=== PATIENT | male | born 1940 | race Caucasian/White ===

== ENCOUNTER 2020-12-22 14:19 | Inpatient (IN) | payer MEDICARE, BC ==
[~2020-12-22] VITALS: Ht 190.5 cm; Wt 109.3 kg
[~2020-12-22 14:19] MED LIST: DRON400T MT; FURO-152 MT; KDUR10 PO; LOSA25TA26 PO; TAMS-11 PO
[2020-12-22 15:45] LABS: CHLORIDE 106 mEq/L (98-107)
[2020-12-22] MEDS ORDERED: SODIUM CHLORIDE 0.9% 250 ML IV ONE (15:45)
[2020-12-22] MEDS ORDERED: NOREPINEPHRINE 8MG/250ML PMX 250 ML IV PRN (15:45)
[2020-12-22 15:50] LABS: BASOPHILS % 0.5 % (0.0-2.0); HEMATOCRIT. 29.3 % (42.0-52.0); MEAN CORPUSCULAR HEMOGLOBIN 28.9 pg (28.0-32.0); MEAN PLATELET VOLUME 8.1 fl (7.4-10.4); MONOCYTES % 6.7 % (2.0-8.0); NEUTROPHILS % 64.8 % (40.0-76.0); PLATELET 146 x1000/uL (130-400); RED BLOOD CELL COUNT 3.44 mill/uL (4.7-6.1); RED CELL DISTRIBUTION WIDTH 15.9 % (11.6-14.6)
[2020-12-22 15:58] LABS: BETA HYDROXYBUTYRATE 0.4 mMol/L (0.0-0.3)
[2020-12-22] MEDS: AMIODARONE HCL 200 MG TABLET PO SCH ×2 (16:00→22:57)
[2020-12-22] MEDS ORDERED: AMIODARONE HCL 900 MG in DEXT 5% WATER 482 ML IV SCH (16:00)
[2020-12-22] MEDS ORDERED: CLONIDINE 0.1MG TABLET PO PRN (20:45)
[2020-12-22] MEDS ORDERED: IPRATROPIUM/ALBUTEROL 0.5-3(2.5)MG/3ML NEB NEB PRN (20:45)
[2020-12-22] MEDS ORDERED: MAGNESIUM/ALUMINUM HYDROXIDE/SIMETHICONE 30ML UDC PO PRN (20:45)
[2020-12-22] MEDS ORDERED: ONDANSETRON HCL 4MG/2ML INJ IV PRN (20:45)
[2020-12-22] MEDS ORDERED: GUAIFENESIN 200MG/10ML SUGAR FREE UDC PO PRN (20:45)
[2020-12-22] MEDS ORDERED: NITROGLYCERIN 0.4MG TABLET SL SL PRN (20:45)
[2020-12-22] MEDS ORDERED: ZOLPIDEM TARTRATE 5MG TABLET PO PRN (20:45)
[2020-12-22] MEDS ORDERED: TRAMADOL 50MG TABLET PO PRN (20:45)
[2020-12-22] MEDS ORDERED: ACETAMINOPHEN 325MG TABLET PO PRN ×2 (20:45)
[2020-12-22] MEDS ORDERED: DOCUSATE SODIUM 100MG CAPSULE PO PRN (20:45)
[2020-12-22 21:00] LABS: CLARITY URINE CLEAR (CLEAR); COLOR URINE DARK YELLOW (YELLOW); KETONES URINE NEGATIVE (NEGATIVE); LEUKOCYTE ESTERASE URINE NEGATIVE (NEGATIVE); NITRITE URINE NEGATIVE (NEGATIVE); OCCULT BLOOD URINE NEGATIVE (NEGATIVE); PROTEIN URINE NEGATIVE (NEGATIVE); SPECIFIC GRAVITY URINE 1.013 (1.005-1.030); UROBILINOGEN URINE 0.2 E.U./dL (0.2-1.0)
[2020-12-22 21:08] LABS: T4 FREE 1.24 ng/dL (0.76-1.46)
[2020-12-22 21:31] LABS: VITAMIN B12 SERUM 1556 pg/mL (211-911)
[2020-12-22 21:49] LABS: FERRITIN 13 ng/mL (22-322)
[2020-12-22 21:52] LABS: FOLIC ACID (FOLATE) SERUM > 20.00 ng/mL (>5.38)
[2020-12-22 22:00] VITALS: BP 146/98
[2020-12-22] MEDS: ENOXAPARIN 40MG/0.4ML SYR SUBCUT SCH (22:56)
[2020-12-22] MEDS: FAMOTIDINE 20MG TABLET PO SCH (22:56)
[2020-12-22] MEDS: ASCORBIC ACID 500 MG TABLET PO SCH (22:57)
[2020-12-22 23:17] VITALS: BP 126/81
[2020-12-22 23:27] LABS: CREATINE KINASE 87 IU/L (39-308)
[2020-12-22 23:28] LABS: CREATINE KINASE MB FRACTION 1.8 ng/mL (0.5-3.6)
[2020-12-23] VITALS (15 sets, daily range): BP systolic 91–153; BP diastolic 48–99
[2020-12-23] MEDS: AMIODARONE HCL 200 MG TABLET PO SCH ×2 (09:11→21:16)
[2020-12-23] MEDS: ZINC SULFATE 220 MG ( 50 ) CAPSULE PO SCH (09:11)
[2020-12-23] MEDS: CHOLECALCIFEROL (D3) 1000 UNIT TABLET PO SCH (09:11)
[2020-12-23] MEDS: ASCORBIC ACID 500 MG TABLET PO SCH ×2 (09:12→21:16)
[2020-12-23] MEDS: ASPIRIN 325MG EC TABLET PO SCH (09:12)
[2020-12-23 09:16] LABS: CHLORIDE 111 mEq/L (98-107)
[2020-12-23 09:26] LABS: CREATINE KINASE 98 IU/L (39-308); CREATINE KINASE MB FRACTION 1.4 ng/mL (0.5-3.6)
[2020-12-23] MEDS: FAMOTIDINE 20MG TABLET PO SCH (11:44)
[2020-12-23] MEDS: FUROSEMIDE 40MG TABLET PO SCH (11:45)
[2020-12-23] MEDS: LOSARTAN POTASSIUM 50 MG TABLET PO SCH (11:45)
[2020-12-23] MEDS: POTASSIUM CHLORIDE 20MEQ/PACKET PO SCH (11:45)
[2020-12-23] MEDS: TAMSULOSIN HCL 0.4MG SR CAPSULE PO SCH (11:45)
[2020-12-23 16:59] LABS: BASOPHILS % 0.5 % (0.0-2.0); EOSINOPHILS % 3.5 % (0.0-5.0); HEMATOCRIT. 31.1 % (42.0-52.0); HEMOGLOBIN. 10.2 g/dL (14.0-18.0); LYMPHOCYTES % 17.4 % (20.0-50.0); MEAN CORPUSCULAR HEMOGLOBIN 28.2 pg (28.0-32.0); MEAN CORPUSCULAR VOLUME 85.7 fL (80.0-94.0); MEAN PLATELET VOLUME 8.1 fl (7.4-10.4); MONOCYTES % 6.4 % (2.0-8.0); NEUTROPHILS % 72.2 % (40.0-76.0); PLATELET 150 x1000/uL (130-400); RED BLOOD CELL COUNT 3.63 mill/uL (4.7-6.1); RED CELL DISTRIBUTION WIDTH 15.8 % (11.6-14.6)
[2020-12-23] MEDS: ENOXAPARIN 40MG/0.4ML SYR SUBCUT SCH (21:17)
[2020-12-24] VITALS (13 sets, daily range): BP systolic 114–156; BP diastolic 56–95
[2020-12-24] MEDS: ASPIRIN 325MG EC TABLET PO SCH ×2 (09:00→12:53)
[2020-12-24] MEDS ORDERED: ACETAMINOPHEN 325MG TABLET PO PRN (11:15)
[2020-12-24] MEDS: AMIODARONE HCL 200 MG TABLET PO SCH ×2 (12:52→20:49)
[2020-12-24] MEDS: FAMOTIDINE 20MG TABLET PO SCH (12:53)
[2020-12-24] MEDS: ASCORBIC ACID 500 MG TABLET PO SCH ×2 (12:53→20:49)
[2020-12-24] MEDS: TAMSULOSIN HCL 0.4MG SR CAPSULE PO SCH (12:53)
[2020-12-24] MEDS: ZINC SULFATE 220 MG ( 50 ) CAPSULE PO SCH (12:53)
[2020-12-24] MEDS: FUROSEMIDE 40MG TABLET PO SCH (12:53)
[2020-12-24] MEDS: CHOLECALCIFEROL (D3) 1000 UNIT TABLET PO SCH (12:53)
[2020-12-24] MEDS: LOSARTAN POTASSIUM 50 MG TABLET PO SCH (12:54)
[2020-12-24] MEDS: POTASSIUM CHLORIDE 20MEQ/PACKET PO SCH (12:54)
[2020-12-24] MEDS: ENOXAPARIN 30MG/0.3ML SYR SUBCUT SCH (20:49)
[2020-12-25] VITALS (8 sets, daily range): BP systolic 121–150; BP diastolic 76–91
[2020-12-25] MEDS: POTASSIUM CHLORIDE 20MEQ/PACKET PO SCH (08:55)
[2020-12-25] MEDS: CHOLECALCIFEROL (D3) 1000 UNIT TABLET PO SCH (08:55)
[2020-12-25] MEDS: FAMOTIDINE 20MG TABLET PO SCH (08:56)
[2020-12-25] MEDS: TAMSULOSIN HCL 0.4MG SR CAPSULE PO SCH (08:56)
[2020-12-25] MEDS: LOSARTAN POTASSIUM 50 MG TABLET PO SCH (08:56)
[2020-12-25] MEDS: ASPIRIN 325MG EC TABLET PO SCH ×2 (08:56→09:00)
[2020-12-25] MEDS: AMIODARONE HCL 200 MG TABLET PO SCH (08:56)
[2020-12-25] MEDS: ZINC SULFATE 220 MG ( 50 ) CAPSULE PO SCH (08:56)
[2020-12-25] MEDS: FUROSEMIDE 40MG TABLET PO SCH (08:56)
[2020-12-25] MEDS: ASCORBIC ACID 500 MG TABLET PO SCH (08:56)
[2020-12-25] MEDS: ENOXAPARIN 30MG/0.3ML SYR SUBCUT SCH (09:00)
== END 2020-12-25 13:00 | disposition home or self-care (01) | DRG 291 ==
LOC: ER 14:19 → 3WST 20:19 → ENRESERV 20:28 → EDBEDREQTM 20:34 → EDBEDREQSVC 20:34 → EDBEDREQ 20:34 → SUPCPDRO 20:34
PROVIDERS: ADMIT Internal Medicine; ATTEND Internal Medicine
PROC: 5A2204Z Restoration of Cardiac Rhythm, Single (ICD-10-PCS; principal; 2020-12-24)
PROC: 05H733Z Insertion of Infusion Device into Right Axillary Vein, Percutaneous Approach (ICD-10-PCS; 2020-12-24)
PROC: B54MZZA Ultrasonography of Right Upper Extremity Veins, Guidance (ICD-10-PCS; 2020-12-24)
DX: I13.0 Hypertensive heart and chronic kidney disease with heart failure and stage 1 through stage 4 chronic kidney disease, or unspecified chronic kidney disease (principal); N17.0 Acute kidney failure with tubular necrosis; I50.43 Acute on chronic combined systolic (congestive) and diastolic (congestive) heart failure; I48.19 Other persistent atrial fibrillation; I48.4 Atypical atrial flutter; E44.0 Moderate protein-calorie malnutrition; I45.2 Bifascicular block; F41.9 Anxiety disorder, unspecified; N18.2 Chronic kidney disease, stage 2 (mild); I48.0 Paroxysmal atrial fibrillation; D63.1 Anemia in chronic kidney disease; Z96.641 Presence of right artificial hip joint; G47.33 Obstructive sleep apnea (adult) (pediatric); D63.8 Anemia in other chronic diseases classified elsewhere; I11.0 Hypertensive heart disease with heart failure; I49.5 Sick sinus syndrome; N40.0 Benign prostatic hyperplasia without lower urinary tract symptoms; Z85.46 Personal history of malignant neoplasm of prostate; Z87.891 Personal history of nicotine dependence; Z95.0 Presence of cardiac pacemaker; Z86.19 Personal history of other infectious and parasitic diseases; Z68.30 Body mass index [BMI] 30.0-30.9, adult
CPT/HCPCS: 36415; 71045; 76937; 80053; 80061; 81003; 82010; 82550; 82553; 82607; 82728; 82746; 83036; 83540; 83550; 83605; 83735; 83880; 84100; 84145; 84439; 84443; 84484; 85025; 92960; 93005; 93970; 99285; C1725; J0282; J1650; J7060

== ENCOUNTER → 2021-07-14 | Outpatient (CLI) | payer MEDICARE, BC ==
[~2021-07-14] MED LIST changes: -KDUR10 PO; +POTA-189 PO
== END | disposition home or self-care (01) ==
LOC: RAD 15:01
PROVIDERS: ATTEND Internal Medicine Clinical Cardiac Electrophysiology
DX: I48.19 Other persistent atrial fibrillation (principal); K44.9 Diaphragmatic hernia without obstruction or gangrene; Z95.0 Presence of cardiac pacemaker
CPT/HCPCS: 71045

== ENCOUNTER 2022-12-07 15:28 | Inpatient (IN) | payer MEDICARE, BC ==
[~2022-12-07] VITALS: Ht 190.5 cm; Wt 102.1 kg
[2022-12-07 17:03] LABS: BASOPHILS % 0.5 % (0.0-2.0); EOSINOPHILS % 2.8 % (0.0-5.0); HEMATOCRIT. 33.8 % (42.0-52.0); HEMOGLOBIN. 10.9 g/dL (14.0-18.0); LYMPHOCYTES % 25.2 % (20.0-50.0); MEAN CORPUSCULAR HEMOGLOBIN 29.5 pg (28.0-32.0); MEAN CORPUSCULAR VOLUME 91.3 fL (80.0-94.0); MEAN PLATELET VOLUME 7.5 fl (7.4-10.4); NEUTROPHILS % 65.5 % (40.0-76.0); PLATELET 171 x1000/uL (130-400); RED CELL DISTRIBUTION WIDTH 14.8 % (11.6-14.6)
[2022-12-07 17:06] LABS: CHLORIDE 108 mEq/L (98-107)
[2022-12-07 17:28] VITALS: BP 130/69; PULSE 128; RESP 20; TEMP 98
[2022-12-07] MEDS ORDERED: ONDANSETRON HCL 4MG/2ML INJ IV PRN (17:30)
[2022-12-07] MEDS ORDERED: ACETAMINOPHEN 325MG TABLET PO PRN ×2 (17:30)
[2022-12-07] MEDS ORDERED: IPRATROPIUM BROMIDE (0.02%) 0.5MG/2.5ML NEB HHN PRN (17:30)
[2022-12-07] MEDS ORDERED: DOCUSATE SODIUM 100MG CAPSULE PO PRN (17:30)
[2022-12-07] MEDS ORDERED: MAGNESIUM/ALUMINUM HYDROXIDE/SIMETHICONE 30ML UDC PO PRN (17:30)
[2022-12-07] MEDS ORDERED: CLONIDINE 0.1MG TABLET PO PRN (17:30)
[2022-12-07 17:38] VITALS: BP 130/69; PULSE 131; RESP 21; TEMP 98
[2022-12-07 18:00] VITALS: BP 113/71; PULSE 135; RESP 20
[2022-12-07] MEDS: AMIODARONE HCL 200 MG TABLET PO SCH (19:30)
[2022-12-07 20:00] VITALS: BP 140/60; PULSE 133; RESP 23; TEMP 97.8
[2022-12-07] MEDS ORDERED: ENOXAPARIN 30MG/0.3ML SYR SUBCUT SCH (21:00)
[2022-12-07] MEDS ORDERED: LOSARTAN POTASSIUM 25 MG TABLET PO SCH (21:00)
[2022-12-07] MEDS ORDERED: LATANOPROST 0.005% OPHTH DROPS 2.5ML BOTHEYE SCH (21:00)
[2022-12-08] VITALS (15 sets, daily range): BP systolic 107–152; BP diastolic 35–93; PULSE 61–134; RESP 14–22; TEMP 97.5–98.7; O2SAT 97
[2022-12-08 07:26] LABS: HEMATOCRIT 32.9 % (42.0-52.0); HEMOGLOBIN 10.9 g/dL (14.0-18.0); MEAN CORPUSCULAR HEMOGLOBIN 29.2 pg (28.0-32.0); MEAN CORPUSCULAR VOLUME 88.5 fL (80.0-94.0); PLATELET 162 x1000/uL (130-400); RED BLOOD CELL COUNT 3.72 mill/uL (4.7-6.1); RED CELL DISTRIBUTION WIDTH 14.9 % (11.6-14.6)
[2022-12-08] MEDS: AMIODARONE HCL 200 MG TABLET PO SCH (08:37)
[2022-12-08] MEDS ORDERED: AMIODARONE HCL 200 MG TABLET PO SCH (09:00)
[2022-12-08] MEDS ORDERED: LIDOCAINE HCL 1% 10 MG/ML 10ML VIAL ONE (12:43)
[2022-12-08] MEDS ORDERED: PROPOFOL 200MG/20ML VIAL IV ONE (12:44)
[2022-12-08 18:08] LABS: HEMATOCRIT 30.5 % (42.0-52.0); HEMOGLOBIN 10.1 g/dL (14.0-18.0); MEAN CORPUSCULAR HEMOGLOBIN 28.9 pg (28.0-32.0); MEAN CORPUSCULAR VOLUME 87.3 fL (80.0-94.0); PLATELET 166 x1000/uL (130-400); RED BLOOD CELL COUNT 3.49 mill/uL (4.7-6.1); RED CELL DISTRIBUTION WIDTH 14.7 % (11.6-14.6)
== END 2022-12-08 22:29 | disposition home or self-care (01) | DRG 309 ==
LOC: ER 15:28 → 3WST 15:45
PROVIDERS: ADMIT Internal Medicine Critical Care Medicine; ATTEND Internal Medicine Critical Care Medicine
PROC: 5A2204Z Restoration of Cardiac Rhythm, Single (ICD-10-PCS; principal; 2022-12-08)
DX: I48.0 Paroxysmal atrial fibrillation (principal); I13.0 Hypertensive heart and chronic kidney disease with heart failure and stage 1 through stage 4 chronic kidney disease, or unspecified chronic kidney disease; C61 Malignant neoplasm of prostate; D64.9 Anemia, unspecified; N18.9 Chronic kidney disease, unspecified; K44.9 Diaphragmatic hernia without obstruction or gangrene; Z96.643 Presence of artificial hip joint, bilateral; Z96.652 Presence of left artificial knee joint; I48.4 Atypical atrial flutter; I95.9 Hypotension, unspecified; I50.9 Heart failure, unspecified; F41.9 Anxiety disorder, unspecified; Z79.899 Other long term (current) drug therapy; Z85.46 Personal history of malignant neoplasm of prostate; Z92.3 Personal history of irradiation; Z95.0 Presence of cardiac pacemaker
CPT/HCPCS: 36415; 71045; 80048; 80053; 84484; 85025; 85027; 93005; 93970; 99291; J2704; J3490

== ENCOUNTER → 2023-03-01 | Outpatient (CLI) | payer BC ==
[~2023-03-01] VITALS: Ht 190.5 cm; Wt 98.9 kg
[~2023-03-01] MED LIST changes: +APIX5TAB PO; +DEXAMETHASONE 4MG/ML 1ML VIAL ONE; +ETOMIDATE 2MG/ML 10ML VIAL IV ONE; +ONDANSETRON HCL 4MG/2ML INJ ONE; +PROPOFOL 200MG/20ML VIAL IV ONE
[2023-03-01 09:01] LABS: HEMATOCRIT 39.8 % (42.0-52.0); MEAN CORPUSCULAR HEMOGLOBIN 29.2 pg (28.0-32.0); MEAN CORPUSCULAR HGB CONC 32.7 g/dL (31.0-37.0); MEAN CORPUSCULAR VOLUME 89.4 fL (80.0-94.0); PLATELET 190 x1000/uL (130-400); RED BLOOD CELL COUNT 4.45 mill/uL (4.7-6.1); WHITE BLOOD COUNT 8.5 x1000/uL (4.5-11.0)
[2023-03-01 09:10] LABS: POTASSIUM 4.1 mEq/L (3.5-5.1)
[2023-03-01 09:17] LABS: PARTIAL THROMBOPLASTIN TIME 23.8 sec (23.4-31.0); PROTHROMBIN TIME 10.3 sec (9.6-11.0)
[2023-03-01 09:18] LABS: CREATININE 1.6 mg/dL (0.6-1.3)
== END | disposition home or self-care (01) ==
LOC: CCL 06:24
PROVIDERS: ATTEND Internal Medicine Clinical Cardiac Electrophysiology
DX: I48.11 Longstanding persistent atrial fibrillation (principal); I10 Essential (primary) hypertension; Z85.46 Personal history of malignant neoplasm of prostate; Z79.899 Other long term (current) drug therapy; Z98.890 Other specified postprocedural states; Z87.891 Personal history of nicotine dependence; Z82.49 Family history of ischemic heart disease and other diseases of the circulatory system
CPT/HCPCS: 80048; 85027; 85610; 85730; 36415; 92960; 93005; 93280; J1100; J2405; J2704; Z7610 ×5; C1893; J3490